=== PATIENT | female | born 1975 | race Two or more races ===

== ENCOUNTER 2019-10-11 17:40 | Emergency (ER) | payer OTHER, BC, MEDICAID ==
[~2019-10-11] VITALS: Ht 165.1 cm; Wt 91.8 kg
[2019-10-11] MEDS ORDERED: OXYcodone/APAP 5/325MG TABLET ONE (18:22)
[2019-10-11] MEDS ORDERED: DIAZEPAM 5 MG TABLET ONE (18:22)
[2019-10-11] MEDS ORDERED: OXYcodone/APAP 5/325MG TABLET PO ONE (18:30)
[2019-10-11] MEDS ORDERED: DIAZEPAM 5 MG TABLET PO ONE (18:30)
[2019-10-11 19:13] VITALS: BP 132/84
== END 2019-10-11 19:18 | disposition home or self-care (01) ==
LOC: ED 19:13
DX: M75.31 Calcific tendinitis of right shoulder (principal)
CPT/HCPCS: 99283